=== PATIENT | female | born 1980 | race Caucasian/White ===

== ENCOUNTER → 2016-06-09 | Outpatient (CLI) | payer OTHER ==
[~2016-06-09] MED LIST: AMOXIL875 MG PO; NO MEDICATIONS; VOLTAREN PO; VOLTAREN75 MG PO
--- NOTE | ~2016-06-09 | CR181 ---
[facility] A Service [facility] RADIOLOGY TEXT RESULTS PATIENT: MARILU SCHMIDT LOCATION: [facility] : [birth year] UNIT #: [id number] AGE: [address]: KRISTIE GARCIA APRN SEX: F ORDER DR: [id number] [place] [id number] O MR#: [id number] Acc #: [id number] NAME: MARILU SCHMIDT : 1980 SEX: F STUDY DATE/TIME: 06/09/2016 14:17 [facility] ROOM: STUDY DESCRIPTION: CR Lumbar Spine 2 or 3 Views Attending Physician: Kristie Garcia Aprn Referring Physician: Kristie Garcia Aprn Ordering Physician: Kristie Garcia Aprn Primary Care Physician: Kristie Garcia Aprn MEDICAL IMAGING REPORT This report is preliminary unless electronic signature is present. EXAM Lumbar spine, plain films. DATE OF EXAM 06/09/2016 HISTORY Low back pain for the last few years. Left lower extremity radicular symptoms. COMMENT AP, lateral lumbosacral views of the lumbar spine reviewed. COMPARISON No comparison. FINDINGS There is minor endplate spondylosis and loss of intervertebral disc height at L2-3. No acute fracture or malalignment. No bone destruction suspected. IMPRESSION Relatively mild plain film evidence of degenerative disease at L2-3. If symptoms persist and more information is needed consider correlation with MRI if the patient is candidate. Dictated by... Chacha Mauro M.D. THIS IS AN ELECTRONICALLY VERIFIED REPORT Chacha Mauro M.D. at 06/10/2016 6:09 AM [facility] A Service [facility] RADIOLOGY TEXT RESULTS PATIENT: MARILU SCHMIDT LOCATION: [facility] : 84 UNIT #: [id number] AGE: [address]: KRISTIE GARCIA APRN SEX: F ORDER DR: Ramila GODDARD: 06/09/2016 15:02 TD: 06/09/2016 21:02 JOB #: [id number] MEDICAL IMAGING REPORT
--- NOTE | ~2016-06-09 | CR219 ---
[facility] A Service of [facility] RADIOLOGY TEXT RESULTS PATIENT: MARILU SCHMIDT LOCATION: [facility] : 84 UNIT #: [id number] AGE: [address]: KRISTIE GARCIA APRN SEX: F ORDER DR: [id number] [place] [id number] O MR#: [id number] Acc #: [id number] NAME: MARILU SCHMIDT : 1980 SEX: F STUDY DATE/TIME: 06/09/2016 14:17 UNIT: [facility] ROOM: STUDY DESCRIPTION: CR Sacrum and Coccyx Min 2 Vie Attending Physician: Kristie Garcia Aprn Referring Physician: Kristie Garcia Aprn Ordering Physician: Kristie Garcia Aprn Primary Care Physician: Kristie Garcia Aprn MEDICAL IMAGING REPORT This report is preliminary unless electronic signature is present. EXAM Sacrum and coccyx study. DATE OF EXAM 06/09/2016 HISTORY Pain for last few years. No trauma. Low-back pain and left lower extremity radicular symptoms. COMMENT 3 views of the sacrum and coccyx submitted for review. COMPARISON There is no comparison. FINDINGS No acute fracture or bony destructive process is appreciated. There is mild sclerosis on either side of the left-sided sacroiliac joint. Please correlate for any clinical concern for sacroiliac joint arthritis. IMPRESSION There is some sclerosis either side of the left-sided sacroiliac joint relatively mild but raising the possibility of sacroiliac joint arthritis. Otherwise, unremarkable plain film assessment of sacrum and coccyx. Dictated by... Chacha Mauro M.D. THIS IS AN ELECTRONICALLY VERIFIED REPORT Chacha Mauro M.D. at 06/10/2016 6:09 AM [facility] A Service of [facility] RADIOLOGY TEXT RESULTS PATIENT: MARILU SCHMIDT LOCATION: [facility] : [birth year] UNIT #: [id number] AGE: [address]: KRISTIE GARCIA APRN SEX: F ORDER DR: Ramila TD: 06/09/2016 21:19 JOB #: [id number] MEDICAL IMAGING REPORT
== END | disposition home or self-care (01) ==
LOC: SRAD 14:11
DX: M54.9 Dorsalgia, unspecified (principal); M51.36 Other intervertebral disc degeneration, lumbar region; M53.3 Sacrococcygeal disorders, not elsewhere classified
CPT/HCPCS: 72100; 72220